=== PATIENT | female | born 1985 | race African-American/Black ===

== ENCOUNTER 2017-01-29 22:51 | Emergency (ER) | payer MEDICAID ==
[~2017-01-29] VITALS: Ht 165.1 cm; Wt 82.0 kg
[~2017-01-29 22:51] MED LIST: DOXY100C PO
[2017-01-30] MEDS ORDERED: KETOROLAC 60MG/2ML VIAL IM ONE (00:15)
[2017-01-30] MEDS ORDERED: SILVER SULFADIAZINE 1% CREAM 25GM TOP ONE (00:45)
[2017-01-30 01:26] VITALS: BP 125/83
== END 2017-01-30 01:39 | disposition home or self-care (01) ==
LOC: ER 23:59
DX: T23.122A Burn of first degree of single left finger (nail) except thumb, initial encounter (principal); T31.0 Burns involving less than 10% of body surface; F17.200 Nicotine dependence, unspecified, uncomplicated; T75.09XA Other effects of lightning, initial encounter; X08.8XXA Exposure to other specified smoke, fire and flames, initial encounter; Y93.89 Activity, other specified; Y92.89 Other specified places as the place of occurrence of the external cause; Y99.8 Other external cause status; Z98.890 Other specified postprocedural states
CPT/HCPCS: 16000; 96372; 99284; J1885; Z7610; 16020; 99285